=== PATIENT | male | born 1965 | race Caucasian/White ===

== ENCOUNTER 2018-08-18 09:37 | Emergency (ER) | payer BC, OTHER ==
[2018-08-18 11:24] VITALS: BP 111/79
--- NOTE | 2018-08-18 11:39 | UC ---
Hand/Wrist HPI - HPI Summary HPI Summary: right wrist pain x 2 days s/p fall on ice, injury to his right wrist pain and swelling of the right wrist worse with right wrist movements , better with rest and ice - History Of Current Complaint Chief Complaint: UCUpperExtremity Stated Complaint: S/P FALL RIGHT WRIST Time Seen by Provider: 08/18/18 11:21 Hx Obtained From: Patient Onset/Duration: Sudden Onset, Lasting Days - 2, Still Present Severity Initially: Moderate Severity Currently: Moderate Pain Intensity: 4 Character Of Pain: Aching Aggravating Factor(s): Flexion, Extension Alleviating Factor(s): Rest, Ice Associated Signs And Symptoms: Positive: Swelling, Weakness. Negative: Bruising - Allergies/Home Medications Allergies/Adverse Reactions: Allergies Allergy/AdvReac Type Severity Reaction Status Date / Time No Known Allergies Allergy Verified 08/18/18 11:09 Home Medications: Home Medications Aspirin 81 mg CHEW TAB* [Aspirin Low Dose TAB*] 81 mg PO DAILY 08/18/18 [ History Confirmed 08/18/18] Atenolol TAB* [Tenormin TAB* 25 MG] 25 mg PO DAILY 08/18/18 [History Confirmed 08/18/18] Atorvastatin* [Lipitor*] 80 mg PO DAILY 08/18/18 [History Confirmed 08/18/18] Otc Potasium 08/18/18 [History] Valsartan TAB* [Diovan TAB*] 20 mg PO DAILY 08/18/18 [History Confirmed 08/18/18 ] PMH/Surg Hx/FS Hx/Imm Hx Cardiovascular History: Cardiac Disease, Hypertension, Myocardial Infarction - Surgical History Surgical History: Yes Surgery Procedure, Year, and Place: CORONARY STENTS - Family History Known Family History: Positive: Hypertension - Social History Alcohol Use: Occasionally Substance Use Type: None Smoking Status (MU): Heavy Every Day Tobacco Smoker Type: Cigarettes Amount Used/How Often: 2 PPD Have You Smoked in the Last Year: Yes Household Exposure Type: Cigarettes Review of Systems All Other Systems Reviewed And Are Negative: Yes Constitutional: Positive: Negative Skin: Positive: Negative Eyes: Positive: Negative ENT: Positive: Negative Respiratory: Positive: Negative Is Patient Immunocompromised?: No Physical Exam Triage Information Reviewed: Yes Appearance: Well-Appearing, No Pain Distress, Well-Nourished Vital Signs: Initial Vital Signs Temp 98 F 08/18/18 11:14 Pulse 84 08/18/18 11:14 Resp 18 08/18/18 11:14 BP 111/79 08/18/18 11:14 Pulse Ox 97 08/18/18 11:14 Vital Signs Reviewed: Yes Eye Exam: Normal Eyes: Positive: Conjunctiva Clear ENT: Positive: Normal ENT inspection, Hearing grossly normal, Pharynx normal Neck: Positive: Supple, Nontender, No Lymphadenopathy Respiratory: Positive: Chest non-tender, Lungs clear, Normal breath sounds Cardiovascular: Positive: RRR, No Murmur, Pulses Normal Musculoskeletal: Positive: Other: - right wrist : + swelling, no bruising, + tenderness ulnar wrist , limited ROM on flexion and extension , limited strength Diagnostics - Laboratory Diagnostic Studies Completed/Ordered: xray right wrist : no fracture or dislocations noted. IMPRESSION: #. Negative for fracture or malalignment. Mild nonfocal soft tissue swelling. #. Mild basal joint osteoarthritis. Hand/Wrist Course/Dx - Differential Dx/Diagnosis Provider Diagnosis: Sprain of right wrist Discharge - Sign-Out/Discharge Documenting (check all that apply): Post-Discharge Follow Up All imaging exams completed and their final reports reviewed: Yes - Discharge Plan Condition: Stable Disposition: HOME Patient Education Materials: Wrist Sprain (ED) Referrals: No Primary Care Phys,NOPCP [Primary Care Provider] - 7 Days - Billing Disposition and Condition Condition: STABLE Disposition: Home
== END 2018-08-18 12:09 | disposition home or self-care (01) ==
LOC: UCCORT 09:37
DX: S63.501A Unspecified sprain of right wrist, initial encounter (principal); W00.0XXA Fall on same level due to ice and snow, initial encounter; Y92.9 Unspecified place or not applicable; I10 Essential (primary) hypertension; I51.9 Heart disease, unspecified; I25.2 Old myocardial infarction; F17.210 Nicotine dependence, cigarettes, uncomplicated
CPT/HCPCS: 99212; G0463

== ENCOUNTER 2019-09-18 08:50 | Emergency (ER) | payer SELFPAY ==
[2019-09-18 09:31] VITALS: BP 127/75
--- NOTE | 2019-09-18 09:39 | UC ---
Respiratory Complaint HPI - HPI Summary HPI Summary: 53-year-old male who had flulike illness approximately 2 weeks ago. Since then he's had sinus congestion, postnasal drainage, sinus pressure, moist congested cough. He states occasionally he feels short of breath. He states when he is coughing he has some burning in the mid chest and that has continued. He has a history of heart attack in the past. He denies any radiation of pain, no nausea , no diaphoresis. - History of Current Complaint Chief Complaint: UCRespiratory Stated Complaint: CHEST CONGESTION, COUGH Time Seen by Provider: 09/18/19 09:28 Hx Obtained From: Patient Onset/Duration: Gradual Onset, Lasting Weeks Timing: Intermittent Episodes Severity Initially: Moderate Severity Currently: Moderate Pain Intensity: 6 Character: Cough: Productive - Productive cough of green sputum. Patient is a smoker. Aggravating Factors: Nothing Alleviating Factors: Nothing Associated Signs And Symptoms: Positive: URI, Nasal Congestion, Sinus Discomfort. Negative: Fever - Allergies/Home Medications Allergies/Adverse Reactions: Allergies Allergy/AdvReac Type Severity Reaction Status Date / Time No Known Allergies Allergy Verified 09/18/19 09:21 PMH/Surg Hx/FS Hx/Imm Hx Previously Healthy: Yes Cardiovascular History: Hypertension, Myocardial Infarction - Last IN was in 2016. - Surgical History Surgical History: Yes Surgery Procedure, Year, and Place: CORONARY STENTS - Family History Known Family History: Positive: Hypertension - Social History Lives: With Family Alcohol Use: Occasionally Substance Use Type: None Smoking Status (MU): Heavy Every Day Tobacco Smoker Type: Cigarettes Amount Used/How Often: 2 PPD Have You Smoked in the Last Year: Yes Household Exposure Type: Cigarettes Review of Systems All Other Systems Reviewed And Are Negative: Yes ENT: Positive: Nasal Discharge, Sinus Congestion, Sinus Pain/Tenderness Respiratory: Positive: Shortness Of Breath - Patient states occasionally he will feel short of breath with coughing., Cough - Loose congested cough. Cardiovascular: Positive: Other - Patient states he has some chest burning mostly with coughing. He denies any radiation of that, no numbness or tingling in his arms or up his neck. Gastrointestinal: Negative: Nausea Is Patient Immunocompromised?: No Physical Exam Triage Information Reviewed: Yes Appearance: Well-Appearing, No Pain Distress, Well-Nourished Vital Signs: Initial Vital Signs Temp 97.8 F 09/18/19 09:23 Pulse 75 09/18/19 09:23 Resp 18 09/18/19 09:23 BP 127/75 09/18/19 09:23 Pulse Ox 97 09/18/19 09:23 Vital Signs Reviewed: Yes Eyes: Positive: Conjunctiva Clear ENT: Positive: Hearing grossly normal, Pharynx normal - Yellow postnasal drainage., Nasal congestion, Nasal drainage, TMs normal, Sinus tenderness, Uvula midline Neck: Positive: Supple, Nontender, No Lymphadenopathy Respiratory: Positive: No respiratory distress, No accessory muscle use, Rhonchi - Scattered rhonchi but good air movement throughout. No distress Cardiovascular: Positive: RRR, No Murmur, Pulses Normal, Brisk Capillary Refill Musculoskeletal Exam: Normal Neurological Exam: Normal Psychological Exam: Normal Skin Exam: Normal Respiratory Course/Dx - Course Course Of Treatment: Chest x-ray:FINDINGS: CARDIOMEDIASTINAL SILHOUETTE: The cardiomediastinal silhouette is normal. MOUNIKA: The mounika are normal. PLEURA: The costophrenic angles are sharp. No pleural abnormalities are noted. LUNG PARENCHYMA: There is hyperinflation with flattening of the diaphragm and expansion of the AP diameter of the chest. ABDOMEN: The upper abdomen is clear. There is no subphrenic gas. BONES AND SOFT TISSUES: No bone or soft tissue abnormalities are noted. OTHER: None. IMPRESSION: HYPERINFLATION, CONSISTENT WITH COPD. NO ACTIVE CARDIOPULMONARY DISEASE. I am going to treat the patient with doxycycline for sinusitis and bronchitis. He was advised to stop smoking. He is comfortable here and in no distress. Definite follow-up in the emergency room for any worsening symptoms. - Differential Dx/Diagnosis Provider Diagnosis: Bronchitis, Sinusitis Discharge ED - Sign-Out/Discharge Documenting (check all that apply): Patient Departure All imaging exams completed and their final reports reviewed: Yes - Discharge Plan Condition: Good Disposition: HOME Prescriptions: DOXYcycline CAP(*) [DOXYcycline 100MG CAP(*)] 100 mg PO BID 10 Days #20 cap Patient Education Materials: Acute Bronchitis (ED) Referrals: Bni Luke MD [Primary Care Provider] - Additional Instructions: Increase fluids, no dairy products, antacids or multivitamins 2 hours before you take the doxycycline and 2 hours after however definitely take it with food. Follow-up with your primary care provider in 5-7 days if no improvement or if worsening symptoms follow-up sooner. If you develop worsening symptoms you are to go to the emergency room for further treatment. Always a good idea to stop smoking. - Billing Disposition and Condition Condition: GOOD Disposition: Home
== END 2019-09-18 10:18 | disposition home or self-care (01) ==
LOC: UCCORT 08:50
DX: J40 Bronchitis, not specified as acute or chronic (principal); J32.9 Chronic sinusitis, unspecified; R91.8 Other nonspecific abnormal finding of lung field; I10 Essential (primary) hypertension; I25.2 Old myocardial infarction; F17.210 Nicotine dependence, cigarettes, uncomplicated; Z95.5 Presence of coronary angioplasty implant and graft; Z79.82 Long term (current) use of aspirin; Z79.899 Other long term (current) drug therapy
CPT/HCPCS: 71046; 99212; G0463